=== PATIENT | female | born 1970 | race Two or more races ===

== ENCOUNTER 2024-08-24 08:57 | Outpatient (RCR) | payer MEDICAID, SELFPAY ==
--- NOTE | 2024-08-30 00:24 | CTCCONSULT_ITS ---
Patient: GEE DUNLAP : 1970 MR#: [id number] Page 3 of 5 CONSULTATION NOTE DATE OF CONSULTATION: 08/24/2024 NAME: GEE DUNLAP ACCOUNT: [id number] : 1970 AGE: 54 REFERRING PHYSICIAN: Debbie Leroy MD PRIMARY PHYSICIAN: REASON FOR VISIT: Fatigue and tiredness ONCOLOGY HISTORY: DIAGNOSIS: Iron deficiency anemia, unspecified [ICD10] D50.9 TREATMENT HISTORY: Care?Plan Start?Date Cycle Day Intent VENOfer?200mg?IV?wkly?for?10?weeks 08/24/2024 1 70 Maintenance HISTORY OF PRESENT ILLNESS: Subjective: Chief Complaint Decreased white cell count, decreased hemoglobin, fatigue, anemia requiring frequent blood transfusions History of Present Illness Fidelia Sharif, a 54-year-old patient, presents with a history of decreased blood cell counts, including white blood cells and hemoglobin, requiring frequent blood transfusions. The patient reports receiving blood transfusions approximately every 3 months due to persistent anemia. They express feeling ext remely tired as a result of their condition. The patient has been experiencing ongoing bleeding issues, though the source has not been identified despite medical investigations. They have undergone a colonoscopy, which reportedly came back clean with no signs of bleeding. A liver biopsy was also ordered, but the results are not mentioned. The patient denies any vaginal bleeding or rectal bleeding. Kole reports following with a picker tender, Dr. Bethany Nuñez, in [place] for their gastrointestinal concerns. They deny any bone pains or family history of malignancy. The patient mentions experiencing changes in stool color when consuming dairy products, indicating a possible lactose intolerance or dairy sensitivity. The patient's anemia has significantly impacted their daily functioning, causing severe fatigue and affecting their overall quality of life. They express difficulty with basic activities due to the persistent tiredness. Medications and Supplements - Iron infusions - Planned to start soon Review of Systems General: Positive for fatigue. Gastrointestinal: Positive for dairy intolerance. Objective: Laboratory, Imaging, and Diagnostic Test Results - CBC: Decreased white cell count, decreased hemoglobin - Colonoscopy: No abnormal findings reported - Iron studies: Completed (results not specified) OTHER MEDICAL HISTORY/CONDITIONS: Panycytopenia HTN Diabetic Cirrhosis of liver - fatty liver GERD Depression Chronic back pain Magno carpal tunnel surgery - 20 yrs ago Right heel spurs removed ROBERTA- BSO - 10yrs ago Cholecystectomy - Right elbow / forearm surgery - 8 yrs ago FAMILY HISTORY: Patient?denies?family?cancer?history. 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 cyclobenzaprine - 5 mg 1 tab Every day before sleep 2. famotidine - 40 mg 1 tab Daily 3. ferrous sulfate - 325 mg (65 mg iron) 1 tab Daily 4. gabapentin - 100 mg 1 Capsule Twice a Day 5. hydrOXYzine HCl - 10 mg 1 tab Every day before sleep 6. Imitrex - 100 mg 1 tab Twice a Day 7. Jardiance - 25 mg 1 tab Daily 8. lisinopril - 10 mg 1 tab Daily 9. loratadine - 10 mg 1 tab Daily 10. omeprazole - 40 mg 1 Capsule Daily 11. oxycodone - 5 mg 1 tab Three times a day 12. sertraline - 25 mg 1 tab Daily 13. ursodioL - 500 mg 1 tab Three times a day 14. Vitamin C - 1,000 mg 1 tab Daily 15. Vitamin D2 - 1,000 unit 2 Capsule Daily Medications Last Reconciled by Denana Luong RN on 08/24/2024 ALLERGIES: No Known Drug Allergies REVIEW OF SYSTEMS: A complete 14-point review of systems was performed and is negative except as noted in interval history. PHYSICAL EXAMINATION: VITAL SIGNS: Temperature?98.8, B/P?128/75, Height?62?inches, Oxygen?Saturation?99% Weight?145?lbs PAIN: 4 - Moderate pain ECOG Performance Status: 2 - Symptomatic; ambulatory; capable of self-care; >50% of waking hrs. not in bed GENERAL APPEARANCE: Appears well, in no apparent distress, appropriately interactive. HEENT: Normocephalic, no temporal wasting, normal conjunctiva, no scleral icterus, normal hearing, lips without lesions, neck normal range of motion. CARDIOVASCULAR: Not assessed. PULMONARY: Normal respiratory effort, no respiratory distress or use of accessory muscles, speaking in full sentences, no tachypnea. EXTREMITIES: No pedal edema or cyanosis. SKIN: Normal skin appearance. NEUROLOGIC: Alert and oriented x4. PSHYCHIATRIC: Appropriate affect, mood normal, behavior normal, intact thought and speech. LABORATORY DATA: I have personally reviewed and interpreted each of the patient?s relevant lab tests, abnormal findings are below: Date ASSESSMENT/PLAN: Assessment and Plan: Fidelia sharif, a 54-year-old patient, presents with chronic anemia requiring frequent blood transfusions every 3 months and reports significant fatigue. Chronic Anemia Assessment: Patient has a history of chronic anemia requiring blood transfusions every 3 months. Recent labs show decreased white cell count and hemoglobin. Iron deficiency is suspected as a contributing factor. Gastrointestinal workup, including colonoscopy, has been unremarkable. The etiology of the anemia remains unclear, with no obvious source of bleeding identified. Differential diagnoses include occult gastrointestinal bleeding, malabsorption, or potential bone marrow disorders. Plan: - Order blood transfusion to maintain hemoglobin above 8 g/dL - Initiate iron infusion therapy - Order comprehensive labs including: - Iron studies - Cancer markers - Consider whole body scan if etiology remains unclear - Consider bone marrow biopsy if no other cause is identified - Follow up with lab results every 3 months after completion of 10 iron infusions - Continue follow-up with gastroenterology (Dr. Bethany Nuñez) Suspected Lactose Intolerance Assessment: Patient reports gastrointestinal symptoms associated with dairy consumption, suggestive of lactose intolerance. This condition may be contributing to malabsorption and potentially exacerbating the anemia. Plan: - Advise strict dairy avoidance - Recommend lactose-free alternatives if dairy consumption is necessary - Educate on potential intestinal damage from dairy consumption in sensitive individuals RETURN TO CLINIC: BILLING AND COMPLIANCE: I reviewed external records from providers outside my specialty as summarized above. I spent a total of 50 minutes on this patient?s care on the day of their visit excluding time spent related to any billed procedures. This time includes time spent with the patient as well as time spent documenting in the medical record, reviewing patients records and tests, obtaining history, placing orders, communicating with other healthcare professionals, counseling the patient, family or caregiver, and/or care coordination for the diagnoses above. Electronically Signed by: Paulino Limon MD T: 12:22 AM CC: PCP: Referring: Debbie Leroy This document was completed utilizing speech recognition software. Grammatical errors, random word insertions, pronoun errors, and incomplete sentences are an occasional consequence of this system due to software limitations, ambient noise, and hardware issues. Any formal questions or concerns about the content, text or information contained within the body of this dictation should be directly addressed to the provider for clarification.
== END 2024-09-12 23:59 | disposition home or self-care (01) ==
LOC: SCTC 08:57
PROVIDERS: PCP Physician Assistant Medical; Referring Provider Physician Assistant Medical; Visit Provider Internal Medicine Hematology & Oncology
DX: D50.9 Iron deficiency anemia, unspecified (principal)
CPT/HCPCS: 99213; G0463

== ENCOUNTER 2024-10-03 09:01 | Outpatient (RCR) | payer MEDICAID, SELFPAY ==
[2024-09-19 10:57] LABS: Basophils # (Auto) 0.0 Thou/mm3 (0.0-0.2); Basophils % (Auto) 1 % (0-2.5); Eosinophils # (Auto) 0.1 Thou/mm3 (0.0-0.5); Eosinophils % (Auto) 4 % (0-10); Hematocrit 27.6 % (36.0-46.0); Immature Granulocytes Auto 0.01 Thou/mm3 (0.00-0.00); Lymphocytes # (Auto) 1.2 Thou/mm3 (1.0-4.8); Lymphocytes % (Auto) 39 % (10-50); Mean Corpuscular HGB Conc 29.3 g/dl (31.0-37.0); Mean Corpuscular Hemoglobin 24.0 pg (25.0-35.0); Mean Corpuscular Volume 82 fL (80-100); Monocytes # (Auto) 0.4 Thou/mm3 (0.0-0.8); Monocytes % (Auto) 15 % (0-12); Neutrophils # (Auto) 1.2 Thou/mm3 (1.8-7.7); Neutrophils % (Auto) 40 % (37-80); Nucleated Red Blood Cell # 0.00 Thou/mm3 (0.00-0.00); Nucleated Red Blood Cell % 0 /100 WBC (0); RDW Standard Deviation 52.6 fL (36.4-46.3); Red Blood Count 3.38 Miln/mm3 (4.00-5.20); White Blood Count 3.0 Thou/mm3 (3.6-11.0)
[2024-09-19 11:02] LABS: Hemoglobin 8.1 g/dL (12.0-16.0); Platelet Count 77 Thou/mm3 (140-440)
[2024-09-19 13:42] LABS: Slide Review Platelets confirmed
== END 2024-10-13 23:59 | disposition home or self-care (01) ==
LOC: SCTC 09:01
PROVIDERS: PCP Physician Assistant Medical; Referring Provider Physician Assistant Medical; Visit Provider Internal Medicine Hematology & Oncology
DX: D50.9 Iron deficiency anemia, unspecified (principal); Z71.3 Dietary counseling and surveillance
CPT/HCPCS: 85025; 96365; 96375; J1756; J2919; J3490; J7040; J7050; A9270

== ENCOUNTER 2024-11-07 12:56 | Outpatient (RCR) | payer MEDICAID, SELFPAY | END 2024-11-13 23:59 | disposition home or self-care (01) | LOC: SCTC 12:56 | PROVIDERS: PCP Physician Assistant Medical; Referring Provider Physician Assistant Medical; Visit Provider Internal Medicine Hematology & Oncology | DX: D50.9 Iron deficiency anemia, unspecified (principal) | CPT/HCPCS: 96365; 96375; J1756; J2919; J3490; J7040; J7050 ==

== ENCOUNTER 2025-02-22 10:06 | Outpatient (RCR) | payer MEDICAID, SELFPAY | END 2025-03-15 23:59 | disposition home or self-care (01) | LOC: SCTC 10:06 | PROVIDERS: PCP Physician Assistant Medical; Referring Provider Physician Assistant Medical; Visit Provider Nurse Practitioner Family | DX: D64.9 Anemia, unspecified (principal) | CPT/HCPCS: 99212; G0463 ==